=== PATIENT | male | born 1955 | race Caucasian/White ===

== ENCOUNTER 2017-06-20 15:19 | Emergency (ER) | payer OTHER ==
[~2017-06-20] VITALS: Ht 170.2 cm; Wt 71.3 kg
[~2017-06-20 15:19] MED LIST: ACCUPRIL40 MG PO; ADDERALL20 MG PO; AMBIEN10 MG PO; AMOXICILLIN875 MG PO; ASPIR-LOW81 MG PO; AZILECT1 MG PO; BITTERMELON PO; CARBIDOPA-LEVO1 EAC5 PO; CARBIDOPA-LEVO1 EAC8 PO; CARBIDOPA/LEVO1 EACH PO; CARDURA2 MG PO; CLONAZEPAM1 MG PO; CO Q-1050 MG PO; DAILY VITE1 EAC1 PO; DOCUSATE SODIU100 MG PO; DOK PLUS TABLE1 EACH PO; DURAGESIC25 MCG TD; FAMOTIDINE20 MG PO; FLONASE16 G1 BOTH NARES; KLONOPIN1 MG PO; LEVOFLOXACIN500 MG PO; LIPITOR80 MG PO; LISINOPRIL10 MG PO; LOPRESSOR25 MG PO; LORATADINE10 M2 PO; METHADONE10 MG PO; METOPROLOL SUCC25 MG PO; MILLIPRED5 MG PO; MORPHINE SULFAT15 M1 PO; OXYCODONE HCL10 MG PO; PANTOPRAZOLE SO40 MG PO; PERCOCET 10/1 TABLET PO; POLYETHYLENE GL17 GM PO; POTASSIUM CHLO20 ME1 PO; PROVENTIL HFA6.7 GM IH; REQUIP0.25 MG PO; ROPINIROLE HCL0.5 MG PO; SINEMET 25-2501 EAC1 PO; TRAZODONE HCL50 MG PO; TRIHEXYPHENIDYL2 MG PO; ZOLPIDEM TARTRA10 MG PO; adderall; ambien; carbidopa; klonopin; morphine; percocet
[2017-06-20 16:36] LABS: EOSINOPHIL (%) 0.5 % (0-5); EOSINOPHIL COUNT 0.1 K/uL (0-0.3); HEMATOCRIT 41.9 % (38.0-50.0); IMMATURE GRANULOCYTE (%) 0.3 % (0.0-0.7); INSTRUMENT ABS NEUTROPHIL CT 5.9 K/uL; LYMPHOCYTE COUNT 2.7 K/uL (1.0-2.8); MCHC 33.2 G/DL (30.0-36.0); MCV 90.3 FL (86-99); MEAN PLAT.VOLUME 10.8 uM^3 (9.0-12.4); MONOCYTE (%) 9.3 % (3-12); MONOCYTE COUNT 0.9 K/uL (0-0.8); NEUTROPHIL (%) 61.2 % (45-76); NEUTROPHIL COUNT 5.9 K/uL (1.8-6.4); PLATELET COUNT 289 K/uL (156-360); RBC DIS.WIDTH-CV 12.1 % (11.8-14.6); RBC DIS.WIDTH-SD 39.8 % (39-53); RED BLOOD COUNT 4.64 M/uL (4.00-5.50); WHITE BLOOD COUNT 9.6 K/uL (4.1-10.2)
[2017-06-20 16:44] LABS: CHLORIDE 110 mEq/L (99-109); POTASSIUM 3.3 mEq/L (3.7-5.4); SODIUM 141 mEq/L (136-147)
[2017-06-20 16:46] LABS: GLUCOSE 101 mg/dL (70-99)
[2017-06-20 16:48] LABS: ANION GAP 9 MEQ/L (2-14)
[2017-06-20 16:50] LABS: GFR ESTIMATE (CALCULATED) > 59 mL/min/
[2017-06-20 16:51] LABS: UREA NITROGEN (BUN) 16 mg/dL (9-23)
[2017-06-20 16:58] LABS: TROP-I INTERPRETATION NEGATIVE; TROPONIN-I < 0.01 ng/mL (0.0-0.30)
[2017-06-20 18:08] LABS: ADD MIUA? YES; BILIRUBIN NEGATIVE; BLOOD SMALL; COLOR YELLOW ((YELLOW)); GLUCOSE (STRIP) NEGATIVE; KETONES 20; LEUKOCYTES NEGATIVE; NITRITE NEGATIVE; PROTEIN (STRIP) NEGATIVE; SPECIFIC GRAVITY 1.023 (1.000-1.030)
[2017-06-20 18:13] LABS: BACTERIA RARE /HPF; EPITHELIAL CELLS NONE SEEN /HPF; HYALINE CASTS 0-5 /LPF; MUCUS TRACE /LPF; RED BLOOD CELLS 0-5 /HPF (0-5); WHITE BLOOD CELLS 0-5 /HPF (0-5)
[2017-06-20] MEDS ORDERED: AMBIEN10 MG PO ×2 (18:19→18:46)
[2017-06-20 19:41] VITALS: BP 163/95
== END 2017-06-20 20:18 | disposition home or self-care (01) ==
LOC: EME 15:19
PROVIDERS: Emergency Medicine
DX: G47.00 Insomnia, unspecified (principal); G20 Parkinson's disease; I10 Essential (primary) hypertension; A69.20 Lyme disease, unspecified; G89.29 Other chronic pain; F41.9 Anxiety disorder, unspecified; F32.9 Major depressive disorder, single episode, unspecified; I25.2 Old myocardial infarction; Z95.1 Presence of aortocoronary bypass graft; Z72.0 Tobacco use
CPT/HCPCS: 71010; 80048; 81003; 84484; 85025; 99281; 99285

== ENCOUNTER 2017-08-15 01:15 | Inpatient (IN) | payer OTHER ==
[~2017-08-15] VITALS: Ht 167.6 cm; Wt 72.6 kg
[2017-08-15 01:51] LABS: BASOPHIL (%) 0.3 % (0-1); EOSINOPHIL (%) 0.4 % (0-5); EOSINOPHIL COUNT 0.1 K/uL (0-0.3); HEMATOCRIT 45.3 % (38.0-50.0); HEMOGLOBIN 14.6 G/DL (12.5-16.6); IMMATURE GRANULOCYTE (%) 0.6 % (0.0-0.7); LYMPHOCYTE (%) 21.2 % (15-42); LYMPHOCYTE COUNT 3.3 K/uL (1.0-2.8); MCH 29.6 PG (29.0-34.0); MCHC 32.2 G/DL (30.0-36.0); MCV 91.7 FL (86-99); MONOCYTE (%) 6.7 % (3-12); MONOCYTE COUNT 1.1 K/uL (0-0.8); NEUTROPHIL (%) 70.8 % (45-76); PLATELET COUNT 359 K/uL (156-360); RBC DIS.WIDTH-CV 12.8 % (11.8-14.6); RBC DIS.WIDTH-SD 43.4 % (39-53); RED BLOOD COUNT 4.94 M/uL (4.00-5.50); WHITE BLOOD COUNT 15.6 K/uL (4.1-10.2)
[2017-08-15 02:02] LABS: CHLORIDE 106 mEq/L (99-109); POTASSIUM 3.9 mEq/L (3.7-5.4); SODIUM 143 mEq/L (136-147)
[2017-08-15 02:03] LABS: GLUCOSE 101 mg/dL (70-99)
[2017-08-15 02:07] LABS: GFR ESTIMATE (CALCULATED) > 59 mL/min/ (58.99-99999)
[2017-08-15 02:08] LABS: UREA NITROGEN (BUN) 14 mg/dL (9-23)
[2017-08-15 02:10] LABS: CREATINE KINASE 405 IU/L (1-294)
[2017-08-15] MEDS ORDERED: MORPHINE SULFAT15 M1 PO (03:54)
[2017-08-15] MEDS ORDERED: FAMOTIDINE20 MG PO (03:54)
[2017-08-15 04:54] LABS: APPEARANCE CLEAR ((CLEAR)); BILIRUBIN NEGATIVE; BLOOD SMALL; COLOR YELLOW ((YELLOW)); GLUCOSE (STRIP) NEGATIVE; KETONES 20; LEUKOCYTES NEGATIVE; NITRITE NEGATIVE; PROTEIN (STRIP) 30; SPECIFIC GRAVITY 1.028 (1.000-1.030)
[2017-08-15 05:05] LABS: BACTERIA NONE SEEN /HPF; EPITHELIAL CELLS RARE /HPF; HYALINE CASTS 40-50 /LPF; MUCUS 3+ /LPF; RED BLOOD CELLS 0-5 /HPF (0-5); UCUL ADDED? NO; WHITE BLOOD CELLS 0-5 /HPF (0-5)
[2017-08-15 05:35] LABS: ALBUMIN 4.2 g/dL (3.2-4.8)
[2017-08-15 05:38] LABS: TOTAL PROTEIN 7.2 g/dL (6.4-8.3)
[2017-08-15 05:40] LABS: TOTAL BILIRUBIN 0.9 mg/dL (0.0-1.0)
[2017-08-15 05:41] LABS: ALKALINE PHOSPHATASE 85 IU/L (3-129)
[2017-08-15 05:43] LABS: AST (GOT) 40 IU/L (2-34)
[2017-08-15 05:44] LABS: ALT (GPT) 4 IU/L (3-49); DIRECT BILIRUBIN 0.3 mg/dL (0.0-0.3)
[2017-08-15 07:43] LABS: CREATINE KINASE 1457 IU/L (1-294)
[2017-08-15] MEDS ORDERED: CARBIDOPA-LEVO1 EAC5 PO (11:45)
[2017-08-15] MEDS ORDERED: CARBIDOPA-LEVO1 EAC8 PO (11:45)
[2017-08-15 19:59] VITALS: BP 120/72
[2017-08-16] VITALS (7 sets, daily range): BP systolic 122–149; BP diastolic 65–87
[2017-08-16 07:03] LABS: HEMATOCRIT 42.8 % (38.0-50.0); HEMOGLOBIN 13.7 G/DL (12.5-16.6); MCH 29.4 PG (29.0-34.0); MCV 91.8 FL (86-99); PLATELET COUNT 279 K/uL (156-360); RBC DIS.WIDTH-CV 12.9 % (11.8-14.6); RBC DIS.WIDTH-SD 43.3 % (39-53); RED BLOOD COUNT 4.66 M/uL (4.00-5.50); WHITE BLOOD COUNT 8.4 K/uL (4.1-10.2)
[2017-08-16 07:28] LABS: CHLORIDE 104 MEQ/L (99-109); CREATINE KINASE 738 IU/L (1-294); CREATININE 0.7 MG/DL (0.6-1.3); GFR ESTIMATE (CALCULATED) > 59 mL/min/ (58.99-99999); GLUCOSE 86 mg/dL (70-99); POTASSIUM 3.6 MEQ/L (3.7-5.4); SODIUM 138 MEQ/L (136-147); TOTAL CK 738 IU/L (1-294); UREA NITROGEN (BUN) 17 mg/dL (9-23)
[2017-08-16 08:07] LABS: CKMB RELATIVE INDEX 0.9 (0.0-3.9)
[2017-08-16 08:33] LABS: CK-MB 6.6 ng/mL (0.0-4.9)
[2017-08-17 06:12] LABS: BASOPHIL (%) 0.4 % (0-1); EOSINOPHIL (%) 0.9 % (0-5); EOSINOPHIL COUNT 0.1 K/uL (0-0.3); HEMOGLOBIN 12.8 G/DL (12.5-16.6); IMMATURE GRANULOCYTE (%) 0.5 % (0.0-0.7); LYMPHOCYTE (%) 23.9 % (15-42); MCH 29.1 PG (29.0-34.0); MCV 90.9 FL (86-99); MONOCYTE (%) 9.7 % (3-12); MONOCYTE COUNT 0.8 K/uL (0-0.8); NEUTROPHIL (%) 64.6 % (45-76); NEUTROPHIL COUNT 5.3 K/uL (1.8-6.4); PLATELET COUNT 275 K/uL (156-360); RBC DIS.WIDTH-CV 12.6 % (11.8-14.6); RBC DIS.WIDTH-SD 42.5 % (39-53); WHITE BLOOD COUNT 8.2 K/uL (4.1-10.2)
[2017-08-17 06:34] LABS: ALBUMIN 3.5 G/DL (3.2-4.8); ALKALINE PHOSPHATASE 62 IU/L (3-129); ALT (GPT) 3 IU/L (3-49); AST (GOT) 27 IU/L (2-34); CHLORIDE 105 MEQ/L (99-109); CREATINE KINASE 379 IU/L (1-294); CREATININE 0.8 MG/DL (0.6-1.3); DIRECT BILIRUBIN 0.1 mg/dL (0.0-0.3); GFR ESTIMATE (CALCULATED) > 59 mL/min/ (58.99-99999); GLUCOSE 101 mg/dL (70-99); POTASSIUM 3.8 MEQ/L (3.7-5.4); SODIUM 138 MEQ/L (136-147); TOTAL BILIRUBIN 0.4 MG/DL (0.0-1.0); TOTAL PROTEIN 6.5 G/DL (6.4-8.3); UREA NITROGEN (BUN) 13 mg/dL (9-23)
[2017-08-17 07:00] VITALS: BP 133/73
[2017-08-17] MEDS ORDERED: DIAZEPAM2 MG PO (10:31)
[2017-08-17] MEDS ORDERED: ENTACAPONE200 MG PO (12:33)
== END 2017-08-17 14:14 | disposition home health service (06) | DRG 57 ==
LOC: EME → EDBD 01:15 → EME 01:15 → EDOF 04:28 → 4SOUTH 04:28 → ENRESERV 04:30 → 4SOUTH 18:01
PROVIDERS: Emergency Medicine; Hospitalist; Physician Assistant
DX: G20 Parkinson's disease (principal); M62.82 Rhabdomyolysis; R65.10 Systemic inflammatory response syndrome (SIRS) of non-infectious origin without acute organ dysfunction; E87.2 Acidosis; D72.829 Elevated white blood cell count, unspecified; I10 Essential (primary) hypertension; I25.10 Atherosclerotic heart disease of native coronary artery without angina pectoris; G89.4 Chronic pain syndrome; F41.9 Anxiety disorder, unspecified; R29.6 Repeated falls; I25.2 Old myocardial infarction; Z95.1 Presence of aortocoronary bypass graft; Z86.73 Personal history of transient ischemic attack (TIA), and cerebral infarction without residual deficits; Z87.891 Personal history of nicotine dependence
CPT/HCPCS: 70450; 71045; 80048; 80076; 81003; 82550; 82550 91; 82553; 83605; 85025; 85027; 87040; 99281; 99285; J1644; J2060; J3010; J7030

== ENCOUNTER 2018-03-11 17:40 | Emergency (ER) | payer OTHER ==
[~2018-03-11] VITALS: Ht 167.6 cm; Wt 74.3 kg
[~2018-03-11 17:40] MED LIST changes: +DIAZEPAM2 MG PO; +ENTACAPONE200 MG PO
[2018-03-11 18:41] LABS: HEMATOCRIT 40.2 % (38.0-50.0); HEMOGLOBIN 13.2 G/DL (12.5-16.6); MCH 29.9 PG (29.0-34.0); MCHC 32.8 G/DL (30.0-36.0); MCV 91.2 FL (86-99); RBC DIS.WIDTH-CV 12.5 % (11.8-14.6); RBC DIS.WIDTH-SD 41.7 % (39-53); RED BLOOD COUNT 4.41 M/uL (4.00-5.50)
[2018-03-11 18:46] LABS: ALBUMIN 3.7 g/dL (3.2-4.8)
[2018-03-11 18:47] LABS: CHLORIDE 106 mEq/L (99-109); POTASSIUM 4.6 mEq/L (3.7-5.4); SODIUM 138 mEq/L (136-147)
[2018-03-11 18:49] LABS: GLUCOSE 115 mg/dL (70-99)
[2018-03-11 18:51] LABS: TOTAL BILIRUBIN 0.6 mg/dL (0.0-1.0)
[2018-03-11 18:52] LABS: ALKALINE PHOSPHATASE 65 IU/L (3-129)
[2018-03-11 18:53] LABS: CREATININE 0.9 mg/dL (0.6-1.3); GFR ESTIMATE (CALCULATED) > 59 mL/min/ (58.99-99999)
[2018-03-11 18:54] LABS: AST (GOT) 13 IU/L (2-34); UREA NITROGEN (BUN) 15 mg/dL (9-23)
[2018-03-11 18:56] LABS: ALT (GPT) 12 IU/L (3-49); LIPASE 7 U/L (1.0-51.0)
[2018-03-11 19:14] LABS: PLAT.SUFFICIENCY ADEQUATE; PLATELET COUNT 254 K/uL (156-360)
[2018-03-11 19:17] LABS: APPEARANCE CLEAR ((CLEAR)); BILIRUBIN NEGATIVE; BLOOD SMALL; COLOR YELLOW ((YELLOW)); GLUCOSE (STRIP) NEGATIVE; KETONES NEGATIVE; LEUKOCYTES NEGATIVE; NITRITE NEGATIVE; PROTEIN (STRIP) NEGATIVE; SPECIFIC GRAVITY 1.024 (1.000-1.030); UROBILINOGEN 0.2 MG/DL (0.2-1.0)
[2018-03-11 19:26] LABS: BACTERIA NONE SEEN /HPF; EPITHELIAL CELLS NONE SEEN /HPF; MUCUS TRACE /LPF; UCUL ADDED? NO; WHITE BLOOD CELLS 0-5 /HPF (0-5)
[2018-03-12] MEDS ORDERED: FLAGYL500 MG PO (00:08)
[2018-03-12] MEDS ORDERED: CIPRO500 MG PO (00:08)
[2018-03-12 00:48] VITALS: BP 162/90
== END 2018-03-12 00:52 | disposition home or self-care (01) ==
LOC: EME 17:40
PROVIDERS: Physician Assistant
DX: K62.89 Other specified diseases of anus and rectum (principal); K59.00 Constipation, unspecified; G20 Parkinson's disease; I10 Essential (primary) hypertension; F32.9 Major depressive disorder, single episode, unspecified; F41.9 Anxiety disorder, unspecified; G89.29 Other chronic pain; I25.2 Old myocardial infarction; Z95.1 Presence of aortocoronary bypass graft; F17.200 Nicotine dependence, unspecified, uncomplicated
CPT/HCPCS: 74018; 74176; 80053; 81003; 83690; 85027; 99281; 99285; J2270